=== PATIENT | female | born 1955 | race Caucasian/White ===

== ENCOUNTER 2021-10-01 21:52 | Emergency (ER) | payer OTHER ==
--- OUTSIDE RECORDS SUMMARY | 2021-10-01 21:54 | XMS REPORT | Continuity of Care Document ---
:1955 Author Organization [facility] t Address [address] [place] [address] [address] [place] [address] Care Team Providers Name Role Phone STACIE Attending Clinician Unavailable MAGNOLIA Attending Clinician Unavailable KRYSTIN Attending Clinician Unavailable KAREN Attending Clinician Unavailable BENSON Attending Clinician Unavailable ZEINA Attending Clinician Unavailable Problems This patient has no known problems. Allergies, Adverse Reactions, Alerts This patient has no known allergies or adverse reactions. Medications This patient has no known medications. Procedures This patient has no known procedures. Encounters Start End Encounter Admission Attending Care Care Encounter Source Date/Time Date/Time Type Type Clinicians Facility Department ID 2021-09-19 2021-09-19 [facility] [id number] [place] 00:00:00 00:00:00 PRADIP [address] 2021-09-19 2021-09-19 Outpatient STACIE, [facility] [id number] [place] 00:00:00 00:00:00 PRADIP [address] 2021-09-19 2021-09-19 [facility] [id number] [place] 00:00:00 00:00:00 ZOHRA [address] 2021-09-06 2021-09-06 [facility] [id number] [place] 00:00:00 00:00:00 JAMES [address] 2021-09-04 2021-09-04 Outpatient TERRIE JONES [facility] [id number] [place] 00:00:00 00:00:[address] 2021-08-21 2021-08-21 Outpatient TERRIE JONES [facility] [id number] [place] 00:00:00 00:00:[address] 2021-08-17 2021-08-17 Outpatient TERRIE JONES [facility] [id number] [place] 00:00:00 00:00:[address] 2021-08-17 2021-08-17 Outpatient [facility] [id number] [place] 00:00:00 00:00:[address] 2021-08-09 2021-08-09 Outpatient STACIE, [facility] [id number] [place] 00:00:00 00:00:00 PRADIP [address] 2021-07-07 2021-07-07 Outpatient [facility] [id number] [place] 00:00:00 00:00:[address] 2021-03-10 2021-03-10 Outpatient [facility] [id number] [place] 00:00:00 00:00:[address] 2021-02-23 2021-02-23 Outpatient [facility] [id number] [place] 00:00:00 00:00:[address] 2021-01-30 2021-01-30 Outpatient BENSON, [facility] [id number] [place] 00:00:00 00:00:00 GWENDOLYN [address] 2021-01-15 2021-01-15 Outpatient ZEINA, [facility] [id number] [place] 00:00:00 00:00:00 CINDY [address] 2020-12-25 2020-12-25 Outpatient [facility] [id number] [place] 00:00:00 00:00:[address] 2020-10-17 2020-10-17 Outpatient STACIE, [facility] [id number] [place] 00:00:00 00:00:00 PRADIP [address] 2020-09-23 2020-09-23 Outpatient STACIE, [facility] [id number] [place] 00:00:00 00:00:00 PRADIP [address] 2020-09-20 2020-09-20 Outpatient STACIE, [facility] [id number] [place] 00:00:00 00:00:00 PRADIP [address] 2020-09-20 2020-09-20 Outpatient [facility] [id number] [place] 00:00:00 00:00:[address] 2020-09-20 2020-09-20 Outpatient MERIDA, [facility] [id number] [place] 00:00:00 00:00:00 ZOHRA [address] 2020-02-24 2020-02-24 Outpatient STACIE, [facility] [id number] [place] 00:00:00 00:00:00 PRADIP [address] 2020-02-01 2020-02-01 Outpatient BENSON, [facility] [id number] [place] 00:00:00 00:00:00 GWENDOLYN [address] Results This patient has no known results.
[2021-10-01] MEDS ORDERED: TETANUS & DIPHTHERIA TOX,ADULT 0.5 ML VIAL ONE (22:55)
--- NOTE | 2021-10-01 23:59 | ER ---
Nurse's Notes [facility] Name: Johanne Storm Age: 66 yrs Sex: Female : 1955 Arrival Date: 10/01/2021 Time: 21:54 Bed 18 Private MD: Diagnosis: Laceration without foreign body of left index finger without damage to nail Presentation: 10/01 22:10 Chief complaint: Patient states: About two hours ago pt cut Left index finger with a vg1 scrap iron cutter and is unable to control the bleed. Coronavirus screen: Vaccine status: Patient reports receiving the 2nd dose of the covid vaccine. Client denies travel out of the [place] in the last 14 days. Ebola Screen: Patient negative for fever greater than or equal to 101.5 degrees Fahrenheit, and additional compatible Ebola Virus Disease symptoms. Initial Sepsis Screen: Does the patient meet any 2 criteria? No. Patient's initial sepsis screen is negative. Does the patient have a suspected source of infection? No. Patient's initial sepsis screen is negative. Risk Assessment: Do you want to hurt yourself or someone else? Patient reports no desire to harm self or others. Onset of symptoms was October 01, 2021. 22:10 Method Of Arrival: Ambulatory vg1 22:10 Acuity: ELAN 4 vg1 Triage Assessment: 22:14 General: Appears in no apparent distress. comfortable, Behavior is calm, cooperative. vg1 Pain: Complains of pain in palmar aspect of distal phalanx of left index finger. 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 - Social history:: Smoking status: Patient denies any tobacco usage or history of. Screenin:45 Abuse screen: Denies threats or abuse. Nutritional screening: No deficits noted. cc4 Tuberculosis screening: No symptoms or risk factors identified. Fall Risk None identified. Assessment: 22:45 Reassessment: Patient appears in no apparent distress at this time. General: Appears in cc4 no apparent distress. Behavior is calm, cooperative. General: Stephane Joe NP in to see \T\ addressing laceration left index finger with wound care done \T\ additional pressure dsg applied.. Pain: Complains of pain in medial aspect left index finger avulsion next to nailbed with active bleeding noted with pressure maintained to site. Pain currently is 4 out of 10 on a pain scale. Quality of pain is described as throbbing, Pain began suddenly, 1 hour ago. Neuro: No deficits noted. Level of Consciousness is awake, alert, obeys commands, Oriented to person, place, time, situation. Cardiovascular: No deficits noted. Respiratory: No deficits noted. Airway is patent Respiratory effort is even, unlabored, Respiratory pattern is regular, symmetrical. GI: No signs and/or symptoms were reported involving the gastrointestinal system. : No signs and/or symptoms were reported regarding the genitourinary system. EENT: No signs and/or symptoms were reported regarding the EENT system. Derm: Skin Avulsion laceration noted left medial index finger nest to nailbed with active bleeding noted and pressure applied; reports cutting finger with fabric rotor blade PAGINATOR. 23:00 Reassessment: Patient appears in no apparent distress at this time. Td 0.5 ml given IM cc4 left deltoid, ivone. well. 10/02 00:05 Reassessment: Patient appears in no apparent distress at this time. Dsg CDI to left cc4 index finger with no bleeding noted. Patient states feeling better. Patient states symptoms have improved. Vital Signs: 10/01 22:10 BP 155 / 76; Pulse 66; Resp 18; Temp 97.5; Pulse Ox 100% ; Weight 95.25 kg; Height 5 vg1 ft. 7 in. (170.18 cm); Pain 11/27; 10/02 00:05 BP 151 / 66; Pulse 68; Resp 20; Temp 98.2; Pulse Ox 100% on R/A; cc4 10/01 22:10 Body Mass Index 32.89 (95.25 kg, 170.18 cm) vg1 ED Course: 10/01 21:54 Patient arrived in ED. bp1 22:14 Triage completed. vg1 22:14 Arm band placed on. vg1 22:43 Stephane Jeo NP is PHCP. pm1 22:43 Arielle Krishna MD is Attending Physician. pm1 22:45 Patient has correct armband on for positive identification. Bed in low position. Call cc4 light in reach. Side rails up X 1. 22:54 Joanne Vilchis, RN is Primary Nurse. cc4 10/02 00:05 Assist provider with laceration repair on medial left index avulsion laceration next to cc4 nail bed that was 2.5 cm. or less using surgicel, telfa 4x4, coban.. Performed by Stephane Joe HOSPITAL SUPERINTENDENT Dressed with surgicel, telfa, 4x4 \T\ coban. 00:05 Patient did not have IV access during this emergency room visit. cc4 Administered Medications: 10/01 23:00 Drug: Tetanus-Diphtheria Toxoid Adult 0.5 ml {Rubber Chemist: [employer]. Exp: cc4 03/31/2023. Lot #: [id number]. } Route: IM; Site: left deltoid; 10/02 00:05 Follow up: Response: No adverse reaction cc4 Outcome: 10/01 23:58 Discharge ordered by . pm1 10/02 00:05 Discharged to home with . cc4 Condition: improved Discharge instructions given to patient, Instructed on discharge instructions, follow up and referral plans. medication usage, Demonstrated understanding of instructions, follow-up care, medications. 00:22 Patient left the ED. cc4 Signatures: Stephane Joe NP HOSPITAL SUPERINTENDENT pm1 Zeynep Ortega RN RN 1 Keila Wolfe [facility] Joanne Vilchis, RN RN cc4
--- NOTE | 2021-10-01 23:59 | EDPHYS ---
Physician Documentation [facility] Name: Johanne Storm Age: 66 yrs Sex: Female : 1955 Arrival Date: 10/01/2021 Time: 21:54 Bed 18 Private MD: ED Physician Arielle Krishna HPI: 10/01 23:56 This 66 yrs old Female presents to ER via Ambulatory with complaints of pm1 Laceration to Finger. 23:56 Onset: The symptoms/episode began/occurred just prior to arrival. pm1 23:56 The patient or guardian reports a laceration, avulsion. The complaints affect the pm1 palmar aspect of distal phalanx of left index finger. Context: The problem was sustained at home, resulted from rotary blade for yarn. 23:56 Modifying factors: The symptoms are alleviated by nothing. Associated signs and pm1 symptoms: Pertinent negatives: cyanosis distally, decreased sensation distally, numbness distally, tingling distally. Severity of symptoms: in the emergency department the symptoms have improved, mildly. The patient has not experienced similar symptoms in the past. The patient has not recently seen a physician. 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 - Social history:: Smoking status: Patient denies any tobacco usage or history of. ROS: 23:56 Constitutional: Negative for fever, chills, and weight loss, Cardiovascular: Negative pm1 for chest pain, palpitations, and edema, Respiratory: Negative for shortness of breath, cough, wheezing, and pleuritic chest pain, MS/Extremity: Negative for injury and deformity. 23:56 Skin: Positive for laceration(s), of the palmar aspect of distal phalanx of left index finger. 23:56 All other systems are negative. Exam: 23:56 Constitutional: This is a well developed, well nourished patient who is awake, alert, pm1 and in no acute distress. Head/Face: Normocephalic, atraumatic. 23:56 Cardiovascular: Exam negative for acute changes, Rate: normal, Rhythm: regular, Pulses: no pulse deficits are appreciated. 23:56 Respiratory: Exam negative for acute changes, respiratory distress, shortness of breath. 23:56 Skin: Appearance: normal except for affected area, injury, avulsion(s), a small of the palmar aspect of distal phalanx of left index finger. 23:56 Neuro: Exam negative for acute changes, Orientation: is normal, Mentation: is normal, Motor: is normal, moves all fours. Vital Signs: 22:10 BP 155 / 76; Pulse 66; Resp 18; Temp 97.5; Pulse Ox 100% ; Weight 95.25 kg; Height 5 vg1 ft. 7 in. (170.18 cm); Pain 11/27; 10/02 00:05 BP 151 / 66; Pulse 68; Resp 20; Temp 98.2; Pulse Ox 100% on R/A; cc4 10/01 22:10 Body Mass Index 32.89 (95.25 kg, 170.18 cm) vg1 MDM: 10/01 22:43 Patient medically screened. pm1 22:46 Data reviewed: vital signs. Data interpreted: Pulse oximetry: on room air is 100 %. pm1 Interpretation: normal. 23:56 Counseling: I had a detailed discussion with the patient and/or guardian regarding: the pm1 historical points, exam findings, and any diagnostic results supporting the discharge/admit diagnosis, the need for outpatient follow up, a family practitioner, to return to the emergency department if symptoms worsen or persist or if there are any questions or concerns that arise at home. 10/01 22:46 Order name: Wound Care; Complete Time: 23:05 pm1 Administered Medications: 23:00 Drug: Tetanus-Diphtheria Toxoid Adult 0.5 ml {Steel Finisher: [employer]. Exp: cc4 03/31/2023. Lot #: [id number]. } Route: IM; Site: left deltoid; 10/02 00:05 Follow up: Response: No adverse reaction cc4 Disposition Summary: 10/01/21 23:58 Discharge Ordered Location: Home pm1 Problem: new pm1 Symptoms: have improved pm1 Condition: Stable pm1 Diagnosis - Laceration without foreign body of left index finger without damage to nail pm1 Followup: pm1 - With: Emergency Department - When: As needed - Reason: Worsening of condition Followup: pm1 - With: Private Physician - When: 2 - 3 days - Reason: Recheck today's complaints, Continuance of care, Re-evaluation by your physician Discharge Instructions: - Discharge Summary Sheet pm1 - Laceration Care, Adult pm1 Forms: - Medication Reconciliation Form pm1 - Thank You Letter pm1 - Antibiotic Education pm1 - Prescription Opioid Use pm1 Prescriptions: - Cephalexin 500 mg Oral Capsule - take 1 capsule by ORAL route every 8 hours for 10 days; 30 capsule; Refills: 0, pm1 Product Selection Permitted Signatures: Stephane Joe NP MANAGER INFUSION pm1 Zeynep Ortega RN RN vg1 Joanne Vilchis RN RN cc4
[2021-10-02 00:26] VITALS: O2SAT 100
[2021-10-02 00:28] VITALS: BP 151/66; TEMP 98.2
== END 2021-10-02 00:22 | disposition home or self-care (01) ==
LOC: ER 21:52
DX: S61.211A Laceration without foreign body of left index finger without damage to nail, initial encounter (principal); W27.8XXA Contact with other nonpowered hand tool, initial encounter; Y92.009 Unspecified place in unspecified non-institutional (private) residence as the place of occurrence of the external cause; Z23 Encounter for immunization; Z88.5 Allergy status to narcotic agent
CPT/HCPCS: 90471; 90714; 99283